=== PATIENT | male | born 1930 | race Hispanic/Latino ===

== ENCOUNTER 2017-11-17 15:32 | Inpatient (IN) | payer MEDICARE ==
[~2017-11-17] VITALS: Ht 170.2 cm; Wt 81.6 kg
[~2017-11-17 15:32] MED LIST: ASPI-555 PO; CILO100T PO; CLOP75TA32 PO; GLIP10TA9 PO; INSU100V12 SQ; LOSA100T29 PO; PRAV40TA3 PO; REPA2TAB8 PO; SITA1TBM7 PO; TAMS0.4C32 PO
[2017-11-17] MEDS ORDERED: SODIUM CHLORIDE 0.9% 1000ML 1,000 ML IV ONE ×2 (16:20→19:56)
[2017-11-17 16:21] LABS: BASOPHILS % (AUTO) 0.5 % (0.0-5.0); HEMATOCRIT 30.7 % (42-54); LYMPHOCYTES % (AUTO) 12.2 % (21.0-51.0); MEAN CORPUSCULAR HEMOGLOBIN 31.2 pg (27.0-33.0); MEAN CORPUSCULAR HGB CONC 33.4 g/dL (32.0-36.0); MEAN CORPUSCULAR VOLUME 93.3 fL (79-99); MONOCYTES % (AUTO) 9.3 % (3.0-13.0); PLATELET COUNT (AUTO) 243 K/uL (130-400); RED BLOOD CELL COUNT(AUTO) 3.29 MIL/uL (4.50-6.20); RED CELL DISTRIBUTION WIDTH 14.1 % (11.0-15.5); WHITE BLOOD COUNT (AUTO) 13.9 K/uL (4.8-10.8)
[2017-11-17 16:33] LABS: INR 0.96 (0.85-1.15); PARTIAL THROMBOPLASTIN TIME 32.4 SEC (26.3-35.5); PROTHROMBIN TIME 10.1 SEC (9.6-11.6)
[2017-11-17 16:37] LABS: ALBUMIN 2.3 g/dL (3.5-5.0); BILIRUBIN,DIRECT 0.2 mg/dL (0.0-0.3); BILIRUBIN,TOTAL 0.8 mg/dL (0.2-1.0); CREATININE 1.6 mg/dL (0.5-1.5); POTASSIUM 4.6 mmol/L (3.5-5.1); TOTAL PROTEIN, SERUM 6.3 g/dL (6.0-8.3)
[2017-11-17 16:54] LABS: B-TYPE NATRIURETIC PEPTIDE 111 pg/mL (0-100)
[2017-11-17 17:46] LABS: APPEARANCE,URINE Clear (CLEAR); BILIRUBIN,URINE Negative (NEGATIVE); COLOR,URINE Dark Yellow (YELLOW); GLUCOSE, URINE (UA) 250 mg/dL (NEGATIVE); KETONES,URINE Negative (NEGATIVE); LEUKOCYTE ESTERASE ,URINE Negative (NEGATIVE); NITRATE,URINE Negative (NEGATIVE); OCCULT BLOOD,URINE Negative (NEGATIVE); PROTEIN,URINE POS 1+ (NEGATIVE)
[2017-11-17 18:08] LABS: BACTERIA,URINE Few /HPF (None Seen); RBC,URINE None Seen /HPF (0-1)
[2017-11-17 22:00] VITALS: BP 157/56
[2017-11-17] MEDS ORDERED: DILT180T12 PO (23:32)
[2017-11-17] MEDS ORDERED: DONE10TA43 PO (23:32)
[2017-11-17] MEDS ORDERED: APIX2.5T PO (23:32)
[2017-11-17] MEDS ORDERED: DIGO250T84 PO (23:32)
[2017-11-17] MEDS ORDERED: SODIUM CHLORIDE 0.9% 1000ML 1,000 ML IV SCH (23:42)
[2017-11-17] MEDS ORDERED: POTASSIUM CHLORIDE 20 MEQ ERTAB PO PRN (23:45)
[2017-11-17] MEDS ORDERED: POTASSIUM CHLORIDE 20MEQ/100ML 100 ML IV PRN (23:45)
[2017-11-17] MEDS ORDERED: POTASSIUM CHLORIDE 10% ELIXIR 20 MEQ/15 ML UDCUP PO PRN (23:45)
[2017-11-17] MEDS ORDERED: LACTULOSE 20 GM/30 ML UDCUP PO PRN (23:45)
[2017-11-17] MEDS ORDERED: ONDANSETRON HCL 4 MG/2 ML VIAL IV PRN (23:45)
[2017-11-17] MEDS ORDERED: GUAIFENESIN-DM 200/20 MG 10 ML PO PRN (23:45)
[2017-11-17] MEDS ORDERED: NITROGLYCERIN 0.4 MG SL TAB SL PRN (23:45)
[2017-11-17] MEDS ORDERED: ACETAMINOPHEN 325 MG TAB PO PRN ×2 (23:45)
[2017-11-17] MEDS ORDERED: LIDOCAINE HCL-MPF 1% 2ML VIAL IVP PRN (23:45)
[2017-11-18] MEDS ORDERED: SODIUM CHLORIDE 0.9% 1000ML 1,000 ML IV ONE (00:16)
[2017-11-18 03:00] VITALS: BP_SYST 156; BP_SYST 165; BP_SYST 184; BP_DIAS 54; BP_DIAS 57; BP_DIAS 63
[2017-11-18 03:47] LABS: HEMATOCRIT 26.6 % (42-54); MEAN CORPUSCULAR HEMOGLOBIN 30.8 pg (27.0-33.0); MEAN CORPUSCULAR HGB CONC 33.8 g/dL (32.0-36.0); MEAN CORPUSCULAR VOLUME 91.1 fL (79-99); PLATELET COUNT (AUTO) 214 K/uL (130-400); RED BLOOD CELL COUNT(AUTO) 2.92 MIL/uL (4.50-6.20); RED CELL DISTRIBUTION WIDTH 14.4 % (11.0-15.5); WHITE BLOOD COUNT (AUTO) 10.1 K/uL (4.8-10.8)
[2017-11-18] MEDS: HYDRALAZINE HCL 20 MG/ML VIAL IV PRN (03:51)
[2017-11-18 04:14] LABS: CREATININE 1.4 mg/dL (0.5-1.5); POTASSIUM 4.5 mmol/L (3.5-5.1)
[2017-11-18 05:50] VITALS: BP 150/43
[2017-11-18 07:00] VITALS: BP 178/60
[2017-11-18] MEDS ORDERED: INSULIN GLARGINE 100 UNITS/ML 10 ML VIAL SQ ONE (08:36)
[2017-11-18] MEDS: FAMOTIDINE 20MG TAB 20 MG TAB PO SCH (08:56)
[2017-11-18] MEDS: INSULIN GLARGINE 100 UNITS/ML 10 ML VIAL SQ SCH (08:56)
[2017-11-18] MEDS: TAMSULOSIN HCL 0.4 MG CAP.ER.24H PO SCH (08:56)
[2017-11-18] MEDS: ASPIRIN 81 MG EC TAB PO SCH (08:57)
[2017-11-18] MEDS: DILTIAZEM HCL 180 MG CAP.SR.24H PO SCH (08:57)
[2017-11-18] MEDS: DIGOXIN 250 MCG TABLET PO SCH (09:00)
[2017-11-18 11:00] VITALS: BP_SYST 143; BP_SYST 160; BP_SYST 163; BP_DIAS 53; BP_DIAS 54; BP_DIAS 55
[2017-11-18] MEDS: INSULIN HUMULIN R 100 UNIT/ML 3ML SQ SCH ×3 (12:26→21:00)
[2017-11-18] MEDS ORDERED: APIXABAN 2.5 MG TABLET PO SCH (17:00)
[2017-11-18] MEDS: APIXABAN 5 MG TABLET PO SCH (17:03)
[2017-11-18 20:00] VITALS: BP 158/57
[2017-11-18] MEDS: ATORVASTATIN CALCIUM 10 MG TABLET PO SCH (20:53)
[2017-11-18] MEDS: DONEPEZIL HCL 5 MG TAB PO SCH (20:53)
[2017-11-19] VITALS (8 sets, daily range): BP systolic 130–178; BP diastolic 43–105
[2017-11-19 04:01] LABS: HEMATOCRIT 26.8 % (42-54); MEAN CORPUSCULAR HEMOGLOBIN 31.5 pg (27.0-33.0); MEAN CORPUSCULAR HGB CONC 34.5 g/dL (32.0-36.0); MEAN CORPUSCULAR VOLUME 91.4 fL (79-99); PLATELET COUNT (AUTO) 218 K/uL (130-400); RED BLOOD CELL COUNT(AUTO) 2.94 MIL/uL (4.50-6.20); RED CELL DISTRIBUTION WIDTH 14.4 % (11.0-15.5); WHITE BLOOD COUNT (AUTO) 11.1 K/uL (4.8-10.8)
[2017-11-19 04:12] LABS: CREATININE 1.3 mg/dL (0.5-1.5); POTASSIUM 4.4 mmol/L (3.5-5.1)
[2017-11-19] MEDS: INSULIN HUMULIN R 100 UNIT/ML 3ML SQ SCH ×4 (06:26→22:38)
[2017-11-19] MEDS ORDERED: IOPAMIDOL-370 75 ML VIAL IV ONE (08:39)
[2017-11-19] MEDS: TAMSULOSIN HCL 0.4 MG CAP.ER.24H PO SCH (10:05)
[2017-11-19] MEDS: DILTIAZEM HCL 180 MG CAP.SR.24H PO SCH (10:05)
[2017-11-19] MEDS: ASPIRIN 81 MG EC TAB PO SCH (10:05)
[2017-11-19] MEDS: DIGOXIN 250 MCG TABLET PO SCH (10:06)
[2017-11-19] MEDS: INSULIN GLARGINE 100 UNITS/ML 10 ML VIAL SQ SCH (10:13)
[2017-11-19] MEDS: FAMOTIDINE 20MG TAB 20 MG TAB PO SCH (10:40)
[2017-11-19] MEDS: APIXABAN 5 MG TABLET PO SCH ×2 (10:40→16:58)
[2017-11-19] MEDS: DONEPEZIL HCL 5 MG TAB PO SCH (21:37)
[2017-11-19] MEDS: ATORVASTATIN CALCIUM 10 MG TABLET PO SCH (21:37)
[2017-11-20] VITALS (13 sets, daily range): BP systolic 146–174; BP diastolic 48–64
[2017-11-20 04:22] LABS: CREATININE 1.2 mg/dL (0.5-1.5); POTASSIUM 3.7 mmol/L (3.5-5.1)
[2017-11-20] MEDS ORDERED: DEXTROSE 50%-WATER 50 ML DISP.SYRIN IV ONE (04:56)
[2017-11-20] MEDS: INSULIN HUMULIN R 100 UNIT/ML 3ML SQ SCH ×3 (07:30→21:00)
[2017-11-20] MEDS: APIXABAN 5 MG TABLET PO SCH ×2 (08:51→17:25)
[2017-11-20] MEDS: ASPIRIN 81 MG EC TAB PO SCH (08:52)
[2017-11-20] MEDS: DILTIAZEM HCL 180 MG CAP.SR.24H PO SCH (08:53)
[2017-11-20] MEDS: TAMSULOSIN HCL 0.4 MG CAP.ER.24H PO SCH (08:53)
[2017-11-20] MEDS: DIGOXIN 250 MCG TABLET PO SCH (08:54)
[2017-11-20] MEDS: FAMOTIDINE 20MG TAB 20 MG TAB PO SCH (08:54)
[2017-11-20] MEDS ORDERED: PHARMACY COMMUNICATION MISC SCH (12:15)
[2017-11-20] MEDS ORDERED: INSULIN HUMULIN R 100 UNIT/ML 3ML SQ SCH (12:18)
[2017-11-20] MEDS: INSULIN GLARGINE 100 UNITS/ML 10 ML VIAL SQ SCH (12:35)
[2017-11-20] MEDS ORDERED: INSULIN HUMULIN R 100 UNIT/ML 3ML ONE (17:21)
[2017-11-20] MEDS: DONEPEZIL HCL 5 MG TAB PO SCH (21:25)
[2017-11-20] MEDS: ATORVASTATIN CALCIUM 10 MG TABLET PO SCH (21:25)
[2017-11-20] MEDS: HYDRALAZINE HCL 20 MG/ML VIAL IV PRN (21:30)
[2017-11-21 03:10] VITALS: BP 184/63
[2017-11-21] MEDS: HYDRALAZINE HCL 20 MG/ML VIAL IV PRN (03:39)
[2017-11-21 05:07] VITALS: BP 158/56
[2017-11-21] MEDS: INSULIN HUMULIN R 100 UNIT/ML 3ML SQ SCH ×2 (07:30→11:28)
[2017-11-21 08:00] VITALS: BP 155/58
[2017-11-21] MEDS: INSULIN GLARGINE 100 UNITS/ML 10 ML VIAL SQ SCH (09:26)
[2017-11-21] MEDS: APIXABAN 5 MG TABLET PO SCH (09:29)
[2017-11-21] MEDS: DILTIAZEM HCL 180 MG CAP.SR.24H PO SCH (09:29)
[2017-11-21] MEDS: TAMSULOSIN HCL 0.4 MG CAP.ER.24H PO SCH (09:30)
[2017-11-21] MEDS: DIGOXIN 250 MCG TABLET PO SCH (09:30)
[2017-11-21] MEDS: ASPIRIN 81 MG EC TAB PO SCH (09:30)
[2017-11-21] MEDS: FAMOTIDINE 20MG TAB 20 MG TAB PO SCH (09:30)
== END 2017-11-21 14:30 | disposition home or self-care (01) | DRG 683 ==
LOC: EDH 15:32 → INTOOBSV 19:15 → OBSVTOIN 19:15 → EDHIP 19:15 → 3BH 21:25
PROVIDERS: ADMIT Family Medicine; ATTEND Family Medicine
DX: N17.9 Acute kidney failure, unspecified (principal); I48.92 Unspecified atrial flutter; E11.22 Type 2 diabetes mellitus with diabetic chronic kidney disease; E11.51 Type 2 diabetes mellitus with diabetic peripheral angiopathy without gangrene; E11.649 Type 2 diabetes mellitus with hypoglycemia without coma; I48.0 Paroxysmal atrial fibrillation; I13.0 Hypertensive heart and chronic kidney disease with heart failure and stage 1 through stage 4 chronic kidney disease, or unspecified chronic kidney disease; I50.32 Chronic diastolic (congestive) heart failure; R55 Syncope and collapse; E44.1 Mild protein-calorie malnutrition; I65.23 Occlusion and stenosis of bilateral carotid arteries; D64.9 Anemia, unspecified; E78.5 Hyperlipidemia, unspecified; F03.90 Unspecified dementia, unspecified severity, without behavioral disturbance, psychotic disturbance, mood disturbance, and anxiety; I25.10 Atherosclerotic heart disease of native coronary artery without angina pectoris; J10.1 Influenza due to other identified influenza virus with other respiratory manifestations; J44.9 Chronic obstructive pulmonary disease, unspecified; N18.2 Chronic kidney disease, stage 2 (mild); R79.1 Abnormal coagulation profile; Z79.01 Long term (current) use of anticoagulants; Z85.46 Personal history of malignant neoplasm of prostate; Z88.0 Allergy status to penicillin; Z98.49 Cataract extraction status, unspecified eye
CPT/HCPCS: 36415; 70450; 70496; 70498; 71045; 78580; 80048; 80076; 80162; 81001; 82550; 82948; 83735; 83880; 84484; 85025; 85027; 85378; 85610; 85730; 87804; 93005; 93306; 93880; 93970; A9540; J0360; J1815; J7030; J7070; Q9967

== ENCOUNTER → 2019-01-19 | Outpatient (CLI) | payer MEDICARE ==
[~2019-01-19] MED LIST changes: +APIX2.5T PO; +DIGO250T84 PO; +DILT180T12 PO; +DONE10TA43 PO; -LOSA100T29 PO; +LOSA100T58 PO
== END | disposition home or self-care (01) ==
LOC: SHCH 08:49
PROVIDERS: ATTEND Internal Medicine Cardiovascular Disease
DX: I65.23 Occlusion and stenosis of bilateral carotid arteries (principal)
CPT/HCPCS: 93880

== ENCOUNTER → 2019-09-27 | Outpatient (CLI) | payer MEDICARE ==
[~2019-09-27] MED LIST changes: +DIGO250T73 PO; -DIGO250T84 PO
== END | disposition home or self-care (01) ==
LOC: SHCH 10:04
PROVIDERS: ATTEND Internal Medicine Cardiovascular Disease
DX: I65.23 Occlusion and stenosis of bilateral carotid arteries (principal)
CPT/HCPCS: 93880

== ENCOUNTER → 2020-07-26 | Outpatient (CLI) | payer MEDICARE ==
[~2020-07-26] MED LIST changes: -ASPI-555 PO; +ASPI-556 PO
== END | disposition home or self-care (01) ==
LOC: SHCH 08:45
PROVIDERS: ATTEND Internal Medicine Cardiovascular Disease
DX: R01.1 Cardiac murmur, unspecified (principal); R09.89 Other specified symptoms and signs involving the circulatory and respiratory systems
CPT/HCPCS: 93306; 93356; 93880

== ENCOUNTER 2020-09-26 07:10 | Day surgery (SDC) | payer MEDICARE ==
[2020-09-26 08:01] LABS: CREATININE 1.8 mg/dL (0.5-1.5)
[2020-09-26] MEDS ORDERED: SODIUM CHLORIDE 0.9% 1000ML 1,000 ML IV SCH (08:15)
[2020-09-26 08:25] VITALS: BP 177/59
--- NOTE | 2020-09-26 08:58 | NUR ---
PT HERE FOR CTA CAROTIDS . IV HYDRATION HAS BEEN STARTED. CARE COORDINATED WITH CT DEPT. WILL BE READY 1230. PT IS COMFORTABLE IN NO DISTRESS. DAUGHTER AT BEDSIDE
[2020-09-26] MEDS ORDERED: IOHEXOL-350 75 ML VIAL IV ONE (13:06)
[2020-09-26 14:18] VITALS: BP 175/55
--- NOTE | 2020-09-26 14:18 | NUR ---
PT DISCHARGED HOME WITH DAUGHTER. TO CAR VIA WHEELCHAIR. NO RASH/HIVES/ITCHING OR WHEEZING. NO ACUTE CHANGES NOTED. IV CATHETER WAS REMOVED.
== END 2020-09-26 14:18 | disposition home or self-care (01) ==
LOC: DAH 07:10
PROVIDERS: ATTEND Internal Medicine Cardiovascular Disease
DX: I65.23 Occlusion and stenosis of bilateral carotid arteries (principal); I70.0 Atherosclerosis of aorta; I77.1 Stricture of artery
CPT/HCPCS: 36415; 70498; 82565; 82948 ×2; 84520; A4215; A4216; A4221; A4222; A4223 ×3; A4663; Q9967; 96360; 96361